=== PATIENT | male | born 1955 | race Two or more races ===

== ENCOUNTER → 2018-06-13 15:30 | Outpatient (CLI) | payer BC, SELFPAY ==
--- NOTE | 2018-06-13 | IMM_PTH ---
PATIENT: HARLEY BANUELOS LOC: [facility] U#:[id number] AGE/SX: 70/M ROOM: RE06/13/[address]: Dr. Osmar Wilson DDS : 1955 BED: DIS: SPEC #: [id number] RECD: 06/17/18 09:53 STATUS: JOHANNA TEE #: [id number] KARI: 06/13/18 00:[address]: Osmar Wilson DEPT: IMMUNOHISTOCHEMISTRY RECD BY: Tania Castro Tissues: Buccal mucosa, NOS Procedures: p16 (initial) PHYSICIAN & INSTITUTION [place] [id number] SPECIMEN INFORMATION: Tissue Source: Right tonsillar area Clinical Info: Nonhealing ulceration Specimen Number: [id number] CPT code: 20288 METHODOLOGY: Deparaffinized sections of prefer/formalin-fixed tissue or PAP/DQ stained slides are incubated with monoclonal/polyclonal antibodies/oligonucleotide probes. Localization is made via biotin free immunoperoxidase method. Appropriate controls are performed and reacted as expected. Results on target cell population are indicated in the following table: RESULTS: ANTIBODY / CLONE RESULT P16 (E6H4) positive, block staining These tests were developed and their performance characteristics determined by [facility]. They may not have been cleared or approved by the [place]. Food and Drug Administration. The FDA has determined that such clearance or approval is not necessary. INTERPRETATION: Right tonsillar area, biopsy: Invasive moderately differentiated squamous cell carcinoma. KARUNA:shruthi 06/18/18
--- NOTE | 2018-06-13 | TONS_PTH ---
PATIENT: HARLEY BANUELOS LOC: [facility] U#:[id number] AGE/SX: 70/M ROOM: RE06/13/[address]: Dr. Osmar Wilson DDS : 1955 BED: DIS: SPEC #: [id number] RECD: 06/14/18 14:30 STATUS: JOHANNA OLIVEIRA #: [id number] KARI: 06/13/18 00:[address]: Osmar Wilson DEPT: SURGICAL PATHOLOGY RECD BY: Meliton Curry Tissues: Tonsil, NOS Procedures: Surgery Specimen Level IV HEADER OPERATION: Biopsy right tonsillar area PRE-OP DIAGNOSIS: 3-6 month history for nonhealing sore TISSUE SUBMITTED: Right tonsillar area ? nonhealing ulceration growth MICROSCOPIC DIAGNOSIS Right tonsillar area, biopsy: Invasive moderately differentiated squamous cell carcinoma. See comment. KARUNA:shruthi 06/17/18 COMMENT Results from immunohistochemistry ([id number]) for surrogate HPV marker (p16) will be reported separately. MICROSCOPIC DESCRIPTION Slides are reviewed. GROSS DESCRIPTION Received in fixative is one container labeled with the patient's name and designated right cheek. The specimen consists of a piece of gupta mucosal tissue measuring 0.5 x 0.3 x 0.2 cm. The specimen is inked, bisected and submitted entirely in one cassette. / KARUNA:shruthi 06/14/18 TC:0 CPT: 07249 ADDENDUM ADDENDUM ADDENDUM ADDENDUM ADDENDUM ADDENDUM ADDENDUM ADDENDUM ADDENDUM ADDENDUM 07/15/2018 10:12 ADDENDUM 07/15/2018 10:12 ADDENDUM 07/15/2018 10:12 ADDENDUM 07/15/2018 10:12 ADDENDUM 07/15/2018 10:12 This addendum is added to incorporate an outside pathology consultation report. The case was examined at [facility] (#[id number]) and the following diagnosis was rendered. Right tonsillar area, biopsy: Invasive moderately differentiated squamous cell carcinoma. Please see complete above mentioned consultation report in EMR
== END ==
PROVIDERS: Visit Provider Dentist Oral and Maxillofacial Surgery
DX: J35.8 Other chronic diseases of tonsils and adenoids (principal)
CPT/HCPCS: 88305; 88342